=== PATIENT | male | born 1980 | race Caucasian/White ===

== ENCOUNTER 2020-07-07 13:56 | Inpatient (IN) | payer OTHER ==
[~2020-07-07 13:56] MED LIST: KEFLEX500 MG PO
[2020-07-07] MEDS ORDERED: BACTRIM DS TAB1 EACH PO (14:35)
[2020-07-07] MEDS ORDERED: KEFLEX250 MG PO (14:35)
[2020-07-07 15:04] LABS: BASOPHIL 1.4 % (0-2); EOSINOPHIL 2.4 % (0-5); HCT 49.3 % (42.0-52.0); HGB 16.9 g/dl (13.2-18.0); LYMPHOCYTE 14.6 % (15-48); MCH 31.2 pg (25.0-31.0); MCHC 34.3 g/dL (32.0-36.0); MCV 91.1 fL (78.0-100.0); MONOCYTE 4.8 % (0-12); MPV 12.1 fL (6.0-9.5); NEUTROPHIL 76.4 % (41-80); NRBC 0; PLT 396 K/uL (150-400); RBC 5.41 M/uL (4.70-6.00); RDW 12.5 % (11.5-14.0)
[2020-07-07 15:06] LABS: WBC 16.2 K/uL (4.0-10.5)
[2020-07-07 15:10] LABS: BUN/CREAT RATIO (CALC) 21.7 RATIO; CREATININE 0.69 mg/dL (0.67-1.17); POTASSIUM 4.5 mmol/L (3.5-5.1)
[2020-07-07] MEDS ORDERED: LOPRESSOR25 MG PO (18:25)
[2020-07-07] MEDS ORDERED: METFORMIN HCL500 MG PO (18:25)
[2020-07-08 04:11] LABS: BASOPHIL 1.8 % (0-2); EOSINOPHIL 4.9 % (0-5); HCT 42.4 % (42.0-52.0); HGB 14.2 g/dl (13.2-18.0); LYMPHOCYTE 24.9 % (15-48); MCH 31.3 pg (25.0-31.0); MCHC 33.5 g/dL (32.0-36.0); MCV 93.6 fL (78.0-100.0); MONOCYTE 7.3 % (0-12); MPV 12.4 fL (6.0-9.5); NRBC 0; PLT 362 K/uL (150-400); RBC 4.53 M/uL (4.70-6.00); RDW 12.9 % (11.5-14.0); WBC 12.5 K/uL (4.0-10.5)
[2020-07-08 04:14] LABS: NEUTROPHIL 60.1 % (41-80)
[2020-07-08 04:25] LABS: BUN/CREAT RATIO (CALC) 25.9 RATIO; C-REACTIVE PROTEIN 6.5 mg/dL (<=0.90); CREATININE 0.54 mg/dL (0.67-1.17); POTASSIUM 3.9 mmol/L (3.5-5.1)
[2020-07-09 04:51] LABS: BASOPHIL 2.2 % (0-2); EOSINOPHIL 6.7 % (0-5); HGB 14.1 g/dl (13.2-18.0); LYMPHOCYTE 31.7 % (15-48); MCH 31.3 pg (25.0-31.0); MCHC 33.6 g/dL (32.0-36.0); MCV 93.3 fL (78.0-100.0); MONOCYTE 7.3 % (0-12); MPV 12.2 fL (6.0-9.5); NEUTROPHIL 51.7 % (41-80); NRBC 0; PLT 381 K/uL (150-400); RDW 12.7 % (11.5-14.0); WBC 9.7 K/uL (4.0-10.5)
[2020-07-09 05:17] LABS: BUN/CREAT RATIO (CALC) 17.2 RATIO; C-REACTIVE PROTEIN 3.4 mg/dL (<=0.90); CREATININE 0.58 mg/dL (0.67-1.17); POTASSIUM 4.1 mmol/L (3.5-5.1)
[2020-07-10 03:53] LABS: BUN/CREAT RATIO (CALC) 16.2 RATIO; C-REACTIVE PROTEIN 1.5 mg/dL (<=0.90); CREATININE 0.68 mg/dL (0.67-1.17); POTASSIUM 3.9 mmol/L (3.5-5.1)
[2020-07-10 04:13] LABS: BASOPHIL 2.4 % (0-2); EOSINOPHIL 5.6 % (0-5); HCT 41.1 % (42.0-52.0); HGB 13.8 g/dl (13.2-18.0); LYMPHOCYTE 35.5 % (15-48); MCH 31.3 pg (25.0-31.0); MCHC 33.6 g/dL (32.0-36.0); MCV 93.2 fL (78.0-100.0); MONOCYTE 6.8 % (0-12); MPV 12.6 fL (6.0-9.5); NEUTROPHIL 49.1 % (41-80); NRBC 0; PLT 393 K/uL (150-400); RBC 4.41 M/uL (4.70-6.00); RDW 12.6 % (11.5-14.0)
[2020-07-10 04:20] LABS: WBC 9.7 K/uL (4.0-10.5)
[2020-07-10] MEDS ORDERED: CLEOCIN300 MG PO (15:29)
--- NOTE | 2020-07-18 09:29 | NUR ---
LATE ENTRY: 07/10/20 PT. D/TERRY WITH NO NEEDS.
== END 2020-07-10 16:51 | disposition home or self-care (01) | DRG 854 ==
LOC: FER 13:56 → FMS 16:44
PROVIDERS: Emergency Medicine; ADMIT Internal Medicine
PROC: 0H99XZZ Drainage of Perineum Skin, External Approach (ICD-10-PCS; principal; 2020-07-07)
DX: A41.9 Sepsis, unspecified organism (principal); L02.215 Cutaneous abscess of perineum; D69.3 Immune thrombocytopenic purpura; L03.315 Cellulitis of perineum; F17.200 Nicotine dependence, unspecified, uncomplicated; G47.33 Obstructive sleep apnea (adult) (pediatric); K21.9 Gastro-esophageal reflux disease without esophagitis; E66.9 Obesity, unspecified; I10 Essential (primary) hypertension; E11.65 Type 2 diabetes mellitus with hyperglycemia; Z90.81 Acquired absence of spleen; Z79.84 Long term (current) use of oral hypoglycemic drugs; Z79.899 Other long term (current) drug therapy
CPT/HCPCS: 36415; 80048; 80202; 83036; 83605; 84145; 85025; 86140; 87040; 87070; 87205; 96365; 96368; J2543; J3370; J7030; J7040; J7050; Q9967